=== PATIENT | male | born 1995 | race Caucasian/White ===

== ENCOUNTER 2017-03-26 12:12 | Emergency (ER) | payer SELFPAY ==
[~2017-03-26] VITALS: Ht 188 cm; Wt 90.0 kg
[2017-03-26 12:19] VITALS: BP 131/68; PULSE 84; RESP 15; TEMP 98.4; O2SAT 98
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
== END 2017-03-26 12:58 | disposition left against medical advice (07) ==
LOC: NEPK 12:12
DX: M25.561 Pain in right knee (principal)
CPT/HCPCS: 99281

== ENCOUNTER 2017-09-25 08:22 | Emergency (ER) | payer SELFPAY ==
[~2017-09-25] VITALS: Ht 190.5 cm; Wt 97.0 kg
[2017-09-25 08:54] VITALS: BP 138/88; PULSE 78; RESP 18; TEMP 98.6
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
== END 2017-09-25 11:05 | disposition home or self-care (01) ==
LOC: NEPD 08:22
DX: S76.312A Strain of muscle, fascia and tendon of the posterior muscle group at thigh level, left thigh, initial encounter (principal); S76.311A Strain of muscle, fascia and tendon of the posterior muscle group at thigh level, right thigh, initial encounter; Y93.55 Activity, bike riding; Z72.0 Tobacco use
CPT/HCPCS: 99281